=== PATIENT | female | born 1995 | race Caucasian/White ===

== ENCOUNTER → 2019-10-25 | Outpatient (CLI) | payer OTHER | END | disposition home or self-care (01) | LOC: US 08:42 | PROVIDERS: ATTEND Obstetrics & Gynecology | PROC: BW40ZZZ Ultrasonography of Abdomen (ICD-10-PCS; principal; 2019-10-25) | DX: R10.11 Right upper quadrant pain (principal) | CPT/HCPCS: Q0092 ==